=== PATIENT | female | born 1985 | race Caucasian/White ===

== ENCOUNTER 2018-01-08 09:47 | Emergency (ER) | payer BC ==
[2018-01-08 10:15] VITALS: BP 105/70
--- NOTE | 2018-01-08 10:33 | UC ---
UC General HPI - HPI Summary HPI Summary: Patient presents complaining of a parotid gland infection. She has a history of Sjogren's and notes that she has had a parotid infection 3 times before and this is exactly the same. She first noticed it with some soreness around her left jaw on the third. It has gotten progressively worse and now there is slight swelling. She denies fever or chills or dental pain. She has no other complaints. She does note a penicillin allergy and thinks her ENT has treated her with clindamycin. - History of Current Complaint Chief Complaint: UCGeneralIllness Stated Complaint: ORAL COMPLAINT Time Seen by Provider: 01/08/18 10:22 Hx Obtained From: Patient Hx Last Menstrual Period: 12/28/17 Onset/Duration: Gradual Onset Timing: Constant Pain Intensity: 4 Aggravating: Nothing Alleviating: Nothing Associated Signs & Symptoms: Negative: Fever, Headache - Allergy/Home Medications Allergies/Adverse Reactions: Allergies Allergy/AdvReac Type Severity Reaction Status Date / Time Penicillins Allergy Rash Verified 01/08/18 10:08 Sulfa (Sulfonamide Allergy Rash Verified 01/08/18 10:08 Antibiotics) Home Medications: Home Medications Certolizumab Pegol [Cimzia] 200 mg SC SEE INSTRUCTIONS 01/08/18 [History Confirmed 01/08/18] Diclofenac Sodium [Pennsaid] 2 unit TP BID 01/08/18 [History Confirmed 01/08/18] Multivitamins/Minerals TAB* [Theragran/minerals TAB*] 1 tab PO DAILY 01/08/18 [ History Confirmed 01/08/18] predniSONE TAB* [Deltasone TAB*] 5 mg PO BEDTIME 01/08/18 [History Confirmed 12/21] PMH/Surg Hx/FS Hx/Imm Hx - Additional Past Medical History Additional PMH: Sjogren's - Surgical History Surgery Procedure, Year, and Place: left knee. hernia repair - Family History Known Family History: Positive: None - Social History Lives: With Family Alcohol Use: Occasionally Substance Use Type: None Smoking Status (MU): Never Smoked Tobacco - Immunization History Vaccination Up to Date: Yes Review of Systems Constitutional: Negative Skin: Negative Eyes: Negative ENT: Negative Respiratory: Negative Cardiovascular: Negative Gastrointestinal: Negative Genitourinary: Negative Motor: Negative Neurovascular: Negative Musculoskeletal: Negative Neurological: Negative Psychological: Negative Is Patient Immunocompromised?: No All Other Systems Reviewed And Are Negative: Yes Physical Exam Triage Information Reviewed: Yes Appearance: Well-Appearing Vital Signs: Initial Vital Signs Temp 99.3 F 01/08/18 10:04 Pulse 74 01/08/18 10:04 Resp 14 01/08/18 10:04 BP 105/70 01/08/18 10:04 Pulse Ox 98 01/08/18 10:04 Eyes: Positive: Conjunctiva Clear ENT: Positive: Pharynx normal, TMs normal, Uvula midline, Other - Slight swelling over the left parotid gland with minimal tenderness when compared to the right. No palpable stone. No submandibular or cervical adenopathy.. Negative: Nasal congestion, Nasal drainage, Trismus, Muffled voice, Hoarse voice Neck: Positive: Supple, Nontender, No Lymphadenopathy Respiratory: Positive: Lungs clear, Normal breath sounds Cardiovascular: Positive: RRR, No Murmur Abdomen Description: Positive: Nontender, No Organomegaly, Soft Bowel Sounds: Positive: Present Musculoskeletal: Positive: ROM Intact Neurological: Positive: Alert Psychological: Positive: Age Appropriate Behavior Skin Exam: Normal Course/Dx - Course Course Of Treatment: Patient is nontoxic. Her exam is consistent with a prostatitis. We'll treat her with clindamycin. Limited Sauers suggested to work the gland. Probiotic use encouraged during the course of the antibiotic. Patient agrees to close follow-up upon return home in [place] this coming Thursday. - Differential Dx - Multi-Symptom Provider Diagnoses: Parotitis L Discharge - Sign-Out/Discharge Documenting (check all that apply): Discharge/Admit/Transfer - Discharge Plan Condition: Stable Disposition: HOME Prescriptions: Clindamycin Cap(NF) [Clindamycin Cap 300 mg Cap(NF)] 300 mg PO TID #21 cap Patient Education Materials: Sialoadenitis (ED) Referrals: Non Staff,Doctor [Primary Care Provider] - Additional Instructions: FOLLOW UP WITH YOUR PCP OR ENT UPON ARRIVAL HOME IN [place] IN 3 DAYS - Billing Disposition and Condition Condition: STABLE Disposition: Home
== END 2018-01-08 10:38 | disposition home or self-care (01) ==
LOC: UCCORT 09:47
DX: K11.20 Sialoadenitis, unspecified (principal); Z88.0 Allergy status to penicillin; Z88.2 Allergy status to sulfonamides; M35.00 Sjogren syndrome, unspecified
CPT/HCPCS: 99202; G0463